=== PATIENT | male | born 1980 | race Hispanic/Latino ===

== ENCOUNTER 2017-02-14 16:11 | Emergency (ER) | payer BC, OTHER ==
--- NOTE | 2017-02-14 17:17 | ED PDOC ---
HPI: General Adult Time Seen by Provider: 02/14/17 17:13 Chief Complaint (Nursing): Abnormal Skin Integrity Chief Complaint (Provider): abscess History Per: Patient History/Exam Limitations: no limitations Additional Complaint(s): 36yo male comes to the ED complaining of back pain and a red bump on his back after coming out of the shower today. Patient states he previously had an abscess on his back for 1 year that he saw a critical care cns for & was given antibiotics which he took, which stopped discharge from the side but he did not follow up for I&D. Last tetanus was 1 year ago. Past Medical History Reviewed: Historical Data, Nursing Documentation, Vital Signs Vital Signs: Last Vital Signs Temp 98.6 F 02/14/17 20:13 Pulse 83 02/14/17 20:13 Resp 17 02/14/17 20:13 BP 141/86 02/14/17 20:13 Pulse Ox 99 02/14/17 20:13 - Medical History PMH: Asthma - Family History Family History: States: Unknown Family Hx - Home Medications Home Medications: Ambulatory Orders Medication Instructions Recorded Naproxen [Naprosyn] 500 mg PO BID PRN #15 tablet 02/14/17 Sulfamethoxazole/Trimethoprim 1 tab PO BID #14 tab 02/14/17 [Bactrim DS 800 mg-160 mg] traMADol [Ultram] 50 mg PO Q8H PRN #10 tab 02/14/17 - Allergies Allergies/Adverse Reactions: Allergies Allergy/AdvReac Type Severity Reaction Status Date / Time apple Allergy RASH Verified 02/16/17 13:56 Review of Systems ROS Statement: Except As Marked, All Systems Reviewed And Found Negative Constitutional: Negative for: Fever Musculoskeletal: Positive for: Back Pain Physical Exam - Reviewed Nursing Documentation Reviewed: Yes Vital Signs Reviewed: Yes - Physical Exam Appears: Positive for: Well, Non-toxic, No Acute Distress Head Exam: Positive for: ATRAUMATIC, NORMAL INSPECTION, NORMOCEPHALIC Skin: Positive for: Warm, Dry Respiratory: Negative for: Respiratory Distress Back: Positive for: Other (Midline upper buttock 1cm area of chronic wound circular, above that there is 3cm area of induration, left of midline with fluctuane and tenderness to palpation but no vesicles. ED scribe Bennie Christie present as powerbuilder. ) Extremity: Positive for: Normal ROM - Laboratory Results Result Diagrams: 02/14/17 17:30 02/14/17 17:30 - ECG O2 Sat by Pulse Oximetry: 100 (RA) Pulse Ox Interpretation: Normal Medical Decision Making Medical Decision Makin Labs, Morphine, Vancomycin ordered. 1830 I&D was completed by me. Patient tolerated procedure well. Blood & Wound cultures were sent prior to starting antibiotics. Disposition - Clinical Impression Clinical Impression: Abscess of back - Disposition Referrals: [facility] [Outside] Disposition: Routine/Home Disposition Time: 20:18 Condition: IMPROVED Additional Instructions: RETURN TO ED IN 48 HOURS FOR WOUND CHECK. Prescriptions: Naproxen [Naprosyn] 500 mg PO BID PRN #15 tablet PRN Reason: Pain, Moderate (4-7) Sulfamethoxazole/Trimethoprim [Bactrim DS 800 mg-160 mg] 1 tab PO BID #14 tab traMADol [Ultram] 50 mg PO Q8H PRN #10 tab PRN Reason: Pain, Severe (8-10) Instructions: Abscess Incision and Drainage (ED), Abscess (ED) Additional Comments - Additional Comments Additional Comments: Scribe Attestation: Documented by Bennie Christie acting as a scribe for Yue Mujica MD. Scribe Attestation: All medical record entries made by the Scribe were at my direction and personally dictated by me. I have reviewed the chart and agree that the record accurately reflects my personal performance of the history, physical exam, medical decision making, and the department course for this patient. I have also personally directed, reviewed, and agree with the discharge instructions and disposition. - Incision & Drainage Of Abscess Anesthesia: Lidocaine 1%, With Epi Procedure: Incised W/Scalpel Blade#: (10), Drained Pus, Irrigated Cavity W/ Saline, Probed To Break Up Loculations, Packed W/Gauze (packing), Cultures Obtained And Sent To Lab
[2017-02-14] MEDS ORDERED: Lidocaine 2% w Epi 1:100,000 Inj IJ STA (17:22)
[2017-02-14 17:58] LABS: ALB/GLOB RATIO 1.2 (1.0-2.1); ALKALINE PHOSPHATASE 75 U/L (38-126); ALT/SGPT 31 U/L (21-72); AST/SGOT 35 U/L (17-59); BILIRUBIN,TOTAL 0.6 mg/dl (0.2-1.3); BLOOD UREA NITROGEN 10 mg/dl (9-20); CALCIUM 9.5 mg/dL (8.4-10.2); CARBON DIOXIDE 28 mmol/L (22-30); CHLORIDE 102 mmol/L (98-107); GFR AFRICAN-AMERICAN > 60; GLUCOSE,RANDOM 100 mg/dL (75-110); POTASSIUM 3.4 MMOL/L (3.6-5.0); SODIUM 144 mmol/l (132-148); TOTAL PROTEIN 8.6 G/DL (6.3-8.2)
[2017-02-14] MEDS ORDERED: Potassium Chloride 20 mEq ER Tab PO STA (18:01)
[2017-02-14] MEDS ORDERED: Lidocaine 2% w Epi 1:100,000 Inj IJ ONE (18:09)
[2017-02-14 18:26] LABS: BASO # 0.1 K/uL (0.0-0.2); BASO % 0.9 % (0.0-2.0); EOS # 0.1 K/uL (0.0-0.7); EOS % 1.5 % (0.0-4.0); HEMATOCRIT 44.9 % (35.0-51.0); LYMPH # 2.2 K/uL (1.0-4.3); LYMPH % 29.4 % (20.0-40.0); MEAN CELL VOLUME 84.2 fl (80.0-94.0); MEAN CORPUSCULAR HEMOGLOBIN 29.8 pg (27.0-31.0); MEAN CORPUSCULAR HGB CONC 35.4 g/dL (33.0-37.0); MONO # 0.4 K/uL (0.0-0.8); MONO % 5.8 % (0.0-10.0); NEUT # 4.6 K/uL (1.8-7.0); NEUT % 62.4 % (50.0-75.0); NRBC % 0.2 % (0.0-0.0); RED CELL DISTRIBUTION WIDTH 14.1 % (11.5-14.5); WHITE BLOOD COUNT 7.4 K/uL (4.8-10.8)
[2017-02-14] MEDS ORDERED: Potassium Chloride 20 mEq ER Tab PO ONE (18:47)
[2017-02-14 20:13] VITALS: BP 141/86; PULSE 83; RESP 17; TEMP 98.6
[2017-02-19 13:26] VITALS: O2SAT 100
== END 2017-02-14 20:21 | disposition home or self-care (01) ==
LOC: H.ER 16:11
DX: L02.212 Cutaneous abscess of back [any part, except buttock and flank] (principal)
CPT/HCPCS: 10060; 80053; 85025; 87040; 87070; 96365; 99283; J2270

== ENCOUNTER 2017-02-16 13:50 | Emergency (ER) | payer BC, OTHER ==
[2017-02-16 13:58] VITALS: BMI 31.1
[2017-02-16 13:59] VITALS: RESP 18; TEMP 98.6; O2SAT 100
--- NOTE | 2017-02-16 14:18 | ED PDOC ---
Addendum entered and electronically signed by Unique Garcia PA 02/19/17 13: 31: ED Course And Treatment O2 Sat by Pulse Oximetry: 100 (RA) Original Note: HPI: Wound Care - HPI Time Seen by Provider: 02/16/17 14:06 Chief Complaint (Nursing): Wound Check Chief Complaint (Provider): Wound Check History Per: Patient Exam Limitations: no limitations Current Symptoms Are (Timing): Still Present Additional Complaint(s): 36 y/o male presents to the emergency department for a wound check and packing removal of abscess to low back that was incised and drained on 02/14/2017. Patient has been taking Naproxen and Bactrim. Bandage was changed and home yesterday as per patient. Area feels much better as per patient. PMD: None Past Medical History Reviewed: Historical Data, Nursing Documentation, Vital Signs Vital Signs: Last Vital Signs Temp 98.6 F 02/16/17 13:58 Pulse 83 02/16/17 13:58 Resp 18 02/16/17 13:58 BP 172/102 H 02/16/17 13:58 Pulse Ox 100 02/16/17 13:58 - Medical History PMH: Asthma - Surgical History Surgical History: No Surg Hx - Family History Family History: States: No Known Family Hx - Living Arrangements Living Arrangements: With Family - Social History Current smoker - smoking cessation education provided: No Alcohol: None Drugs: Denies - Home Medications Home Medications: Ambulatory Orders Medication Instructions Recorded Naproxen [Naprosyn] 500 mg PO BID PRN #15 tablet 02/14/17 Sulfamethoxazole/Trimethoprim 1 tab PO BID #14 tab 02/14/17 [Bactrim DS 800 mg-160 mg] traMADol [Ultram] 50 mg PO Q8H PRN #10 tab 02/14/17 - Allergies Allergies/Adverse Reactions: Allergies Allergy/AdvReac Type Severity Reaction Status Date / Time apple Allergy RASH Verified 02/16/17 13:56 Review of Systems ROS Statement: Except As Marked, All Systems Reviewed And Found Negative Constitutional: Negative for: Fever Skin: Positive for: Other (packing removal and wound check abscess of low back) Physical Exam - Reviewed Nursing Documentation Reviewed: Yes Vital Signs Reviewed: Yes - Physical Exam Appears: Positive for: Non-toxic, No Acute Distress Head Exam: Positive for: ATRAUMATIC, NORMOCEPHALIC Skin: Positive for: Warm, Dry. Negative for: Rash Eye Exam: Positive for: Normal appearance Cardiovascular/Chest: Positive for: Regular Rate, Rhythm Respiratory: Positive for: Normal Breath Sounds Back: Positive for: Other (packed abscess noted to lower back; after removal of packing there is no active bleeding or drainage noted, minimal surrounding erythema, surgical scar noted to gluteal cleft from previous I&D) Extremity: Positive for: Normal ROM Neurologic/Psych: Positive for: Alert, Oriented - ECG O2 Sat by Pulse Oximetry: 100 (RA) Pulse Ox Interpretation: Normal Medical Decision Making Medical Decision Making: Time: 14:06 Initial impression: Wound Check Initial plan: --Packing removed without difficulty, abscess is healing well. Dry bandage applied to affected area. Patient was instructed to do sitz baths and continue with antibiotics until completion. Patient was referred to surgery property assessment monitor for follow up given history of recurrent abscess to same area. BP elevated in ED, patient denies chest pain, SOB, LYNN, dizziness or headache. He was instructed to follow up with PMD for re-check in 1-2 days. Scribe Attestation: Documented by Bell Chu, acting as a scribe for Unique Garcia PA-C. Provider Scribe Attestation: All medical record entries made by the Scribe were at my direction and personally dictated by me. I have reviewed the chart and agree that the record accurately reflects my personal performance of the history, physical exam, medical decision making, and the department course for this patient. I have also personally directed, reviewed, and agree with the discharge instructions and disposition. Disposition - Clinical Impression Clinical Impression: Abscess packing removal, Elevated blood pressure reading - Patient ED Disposition Is Patient to be Admitted: No Counseled Patient/Family Regarding: Diagnosis, Need For Followup - Disposition Referrals: Cory Mathur MD [Staff Provider] - Disposition Time: 15:03 Condition: STABLE Additional Instructions: Keep area clean and dry. Soak in sitz bath with epsom salts, continue with current antibiotics until completion. Follow up with surgeon and follow up with primary care doctor. Instructions: Hypertension (ED), Abscess (ED)
[2017-02-16 15:06] VITALS: BP 161/92; PULSE 74
== END 2017-02-16 15:09 | disposition home or self-care (01) ==
LOC: H.ER 13:50
DX: Z48.00 Encounter for change or removal of nonsurgical wound dressing (principal)